=== PATIENT | female | born 1950 | race Caucasian/White ===

== ENCOUNTER → 2017-07-10 | Day surgery (SDC) | payer BC ==
[~2017-07-10] VITALS: Ht 161.2 cm; Wt 77.1 kg
[~2017-07-10] MED LIST: DIOVAN40 MG PO; KEFLEX500 MG PO; VICODIN 5/500 505 MG PO
--- NOTE | ~2017-07-10 | O ---
[place], [place] OPERATIVE NOTE NAME: RICK MARK UNIT #: [id number] ROOM: DOCTOR: KANDI RODRIGUEZ MD BIRTHDATE: [birth year] DOS: 07/10/2017 GASTROENDOSCOPIC REPORT IDENTIFICATION: The patient has presented for colonic screening. ALLERGIES: PENICILLIN. FAMILY HISTORY: Noncontributory. PAST SURGICAL HISTORY: Hysterectomy. PAST MEDICAL HISTORY: Hypertension. SOCIAL HISTORY: Stopped smoking a year ago. Social alcohol consumer. PROCEDURE: Today's procedure part of investigation is colonoscopy plus multiple piecemeal polypectomies. PREMEDICATION: Versed and propofol. SCOPE: Olympus folding colonoscope 10L video. REPORT: After putting the patient in left lateral position and application of lubricant to the scope, the scope was introduced. Thereafter, under direct visualization, I advanced through the length of colon with difficulty. Difficulty being presence of severe angulations and tortuosity of the colon. Scope was negotiated to the right colon. Some residual stool in the right colon was seen. Air was suctioned out. The patient was extubated to the level of rectosigmoid junction area and 3 polypoid lesions with piecemeal polypectomy were removed. Air was suctioned out. The patient was extubated, tolerated the procedure well. IMPRESSION: Severe tortuosity of colon, presence of multiple sessile polypoid lesions in rectosigmoid anatomy status post piecemeal polypectomy. PLAN AND DISCUSSION: High-fiber fruit diet. ACTIVITY: Ad estevan. FOLLOWUP: As outpatient. Thank you very much indeed for your kind referral. [place], [place] OPERATIVE NOTE NAME: RICK MARK UNIT #: [id number] ROOM: DOCTOR: KANDI RODRIGUEZ MD BIRTHDATE: [birth year] KANDI RODRIGUEZ MD CM:OPRECORD:OPERATIVE NOTE [id number] ADRIEL RODRIGUEZ MD 07/10/17 1500 interface
[2017-07-10 12:00] VITALS: BP 115/57
[2017-07-10 13:34] VITALS: BP 128/50
[2017-07-10 13:43] VITALS: BP 132/58
[2017-07-10 13:56] VITALS: BP 133/68
== END | disposition home or self-care (01) ==
LOC: SDC 07-06 10:15
DX: Z12.11 Encounter for screening for malignant neoplasm of colon (principal); K63.5 Polyp of colon; K63.89 Other specified diseases of intestine; I10 Essential (primary) hypertension; J40 Bronchitis, not specified as acute or chronic; Z90.710 Acquired absence of both cervix and uterus; Z88.0 Allergy status to penicillin; Z87.891 Personal history of nicotine dependence

== ENCOUNTER → 2018-11-10 | Outpatient (CLI) | payer BC | END | disposition home or self-care (01) | LOC: MAMMO 08:34 | DX: Z12.31 Encounter for screening mammogram for malignant neoplasm of breast (principal) ==

== ENCOUNTER 2020-02-23 17:29 | Emergency (ER) | payer BC ==
[~2020-02-23] VITALS: Ht 157.4 cm; Wt 68.0 kg
[2020-02-23] MEDS ORDERED: LOSARTAN POTASS25 M1 PO (17:53)
[2020-02-23] MEDS ORDERED: HYDROCHLOROTH12.5 M2 PO (17:53)
== END 2020-02-23 19:58 | disposition home or self-care (01) ==
LOC: ED 17:29
DX: S82.62XA Displaced fracture of lateral malleolus of left fibula, initial encounter for closed fracture (principal); Z88.0 Allergy status to penicillin; Z79.899 Other long term (current) drug therapy; X58.XXXA Exposure to other specified factors, initial encounter; Y93.89 Activity, other specified; Y92.89 Other specified places as the place of occurrence of the external cause; Y99.8 Other external cause status

== ENCOUNTER → 2021-07-11 | Outpatient (CLI) | payer BC ==
[~2021-07-11] MED LIST changes: +HYDROCHLOROTH12.5 M2 PO; +LOSARTAN POTASS25 M1 PO
[2021-07-11 07:34] LABS: BASO # 0.1 10*3/uL (0.0-0.1); EOS # 0.1 10*3/uL (0.0-0.4); EOS % 1.9 % (1.0-4.0); HEMATOCRIT 46.5 % (37.0-47.0); LYMPH % 34.4 % (27.0-41.0); MEAN CELL VOLUME 92.3 fl (81.0-99.0); MEAN CORPUSCULAR HGB 31.3 pg (27.0-31.0); MEAN PLATELET VOLUME 9.5 fl (9.6-12.3); MONO # 0.5 10*3/uL (0.1-1.0); MONO % 7.8 % (3.0-9.0); NEUT # 3.2 10*3/uL (2.3-7.9); NEUT % 54.7 % (47.0-73.0); PLATELET COUNT AUTOMATED 259 10*3/uL (130-400); RED BLOOD COUNT 5.04 10*6/uL (4.10-5.10); RED CELL DISTRI WIDTH 12.9 % (0-14.5); WHITE BLOOD COUNT 5.9 10*3/uL (4.8-10.8)
[2021-07-11 08:23] LABS: ALKALINE PHOSPHATASE 86 U/L (45-117); BUN 19 mg/dl (7-24); CHLORIDE 105 mmol/L (98-107); CHOLESTEROL 239 mg/dL (<200); CREATININE 0.71 mg/dL (0.55-1.02); LDL CHOLESTEROL 142 mg/dL (9-159); POTASSIUM 4.6 mmol/L (3.5-5.1); SGOT/AST 16 IU/L (3-35); SGPT/ALT 21 U/L (12-78); SODIUM 136 mmol/L (136-145); TRIGLYCERIDES 80 mg/dl (<150)
[2021-07-11 09:35] LABS: VITAMIN D, 25-HYDROXY 42.7 ng/mL (30-100)
== END | disposition home or self-care (01) ==
LOC: LAB 07:14
PROVIDERS: ATTEND Nurse Practitioner Primary Care
DX: I10 Essential (primary) hypertension (principal); E55.9 Vitamin D deficiency, unspecified

== ENCOUNTER → 2021-08-29 | Outpatient (CLI) | payer BC | END | disposition home or self-care (01) | LOC: MAMMO 14:04 | PROVIDERS: ATTEND Physician Assistant | DX: Z12.31 Encounter for screening mammogram for malignant neoplasm of breast (principal) ==

== ENCOUNTER → 2021-09-02 | Outpatient (CLI) | payer BC | END | disposition home or self-care (01) | LOC: RAD 09:29 | PROVIDERS: ATTEND Physician Assistant | DX: M81.0 Age-related osteoporosis without current pathological fracture (principal); Z12.31 Encounter for screening mammogram for malignant neoplasm of breast ==

== ENCOUNTER → 2022-09-17 | Outpatient (CLI) | payer BC | END | disposition home or self-care (01) | LOC: MAMMO 01:31 | PROVIDERS: ATTEND Physician Assistant | DX: Z12.31 Encounter for screening mammogram for malignant neoplasm of breast (principal); N64.9 Disorder of breast, unspecified ==

== ENCOUNTER 2022-10-20 11:26 | Emergency (ER) | payer BC ==
[~2022-10-20] VITALS: Ht 157.4 cm; Wt 76.2 kg
[2022-10-20] MEDS ORDERED: VIBRA-TAB100 MG PO (12:14)
== END 2022-10-20 12:23 | disposition home or self-care (01) ==
LOC: ED 11:26
DX: L03.115 Cellulitis of right lower limb (principal); I10 Essential (primary) hypertension; Z88.0 Allergy status to penicillin; Z91.040 Latex allergy status; Z88.8 Allergy status to other drugs, medicaments and biological substances; Z90.710 Acquired absence of both cervix and uterus